=== PATIENT | male | born 1980 | race Hispanic/Latino ===

== ENCOUNTER → 2024-05-16 | Outpatient (CLI) | payer OTHER | END | disposition home or self-care (01) | LOC: LAB 12:58 | PROVIDERS: ATTEND Nurse Practitioner | DX: S61.217D Laceration without foreign body of left little finger without damage to nail, subsequent encounter (principal); S62.667D Nondisplaced fracture of distal phalanx of left little finger, subsequent encounter for fracture with routine healing; X58.XXXD Exposure to other specified factors, subsequent encounter | CPT/HCPCS: 87070; 87076; 87086; 87186 ==